=== PATIENT | female | born 1980 | race Caucasian/White ===

== ENCOUNTER 2018-04-28 14:38 | Inpatient (IN) | payer OTHER ==
[2018-04-28 14:59] LABS: ADD MAN DIFF? NO
[2018-04-28 15:08] LABS: ABNORMAL IP MESSAGE 1; BASOPHILS % 0.3 % (0.0-2.0); HEMATOCRIT 17.8 % (37.0-47.0); LYMPHOCYTES # 1.2 10^3/ul (0.8-2.9); LYMPHOCYTES % 35.6 % (15.0-51.0); MEAN CORPUSCULAR HEMOGLOBIN 12.7 pg (29.0-33.0); MEAN CORPUSCULAR HGB CONC 21.9 g/dl (32.0-37.0); MEAN PLATELET VOLUME 9.7 fl (7.4-10.4); MONOCYTE # 0.3 10^3/ul (0.3-0.9); MONOCYTES % 8.8 % (0.0-11.0); NEUTROPHIL # 1.8 10^3/ul (1.6-7.5); NEUTROPHILS % 54.7 % (39.0-77.0); PLATELET COUNT 322 10^3/UL (140-415); RED BLOOD COUNT 3.07 10^6/ul (4.20-5.40); RED CELL DISTRIBUTION WIDTH 23.6 % (11.5-14.5)
[2018-04-28 15:08] LABS: WHITE BLOOD COUNT 3.3 10^3/ul (4.8-10.8)
[2018-04-28 15:14] LABS: HEMOGLOBIN 3.9 g/dl (12.0-16.0); PATH REVIEW? YES; POSITIVE DIFF @See below
[2018-04-28 15:22] LABS: ANION GAP 12 (8-16); BLOOD UREA NITROGEN 8 mg/dl (7-20); CARBON DIOXIDE 24 mmol/L (21-31); CHLORIDE 110 mmol/L (97-110); GLUCOSE 100 mg/dl (70-220); SODIUM 142 mmol/L (135-144)
[2018-04-28 15:28] LABS: INR 1.13; PARTIAL THROMBOPLASTIN TIME 27.9 Sec (25.0-35.0); PROTIME 14.7 Sec (11.9-14.9); PT RATIO 1.1
[2018-04-28] MEDS ORDERED: ONDANSETRON 4 MG INJ IV ×2 (15:30→16:00)
[2018-04-28] MEDS ORDERED: ACETAMINOPHEN 325 MG TAB PO (15:30)
[2018-04-28] MEDS ORDERED: NACL 0.9% 3 ML SYG IV (16:00)
[2018-04-28] MEDS: SOD CHLORIDE 0.9% 250 ML IV (16:36)
[2018-04-28 16:47] LABS: ALANINE AMINOTRANSFERASE 20 IU/L (13-69); ALBUMIN 4.2 g/dl (3.3-4.9); ALKALINE PHOSPHATASE 65 IU/L (42-121); ASPARTATE AMINO TRANSFERASE 21 IU/L (15-46); BILIRUBIN,INDIRECT 0.6 mg/dl (0-1.1); BILIRUBIN,TOTAL 0.6 mg/dl (0.2-1.3); TOTAL PROTEIN 7.9 g/dl (6.1-8.1)
[2018-04-28 16:48] LABS: LACTATE DEHYDROGENASE 365 IU/L (313-618)
[2018-04-28 16:54] LABS: IRON 23 ug/dl (35-150)
[2018-04-28 17:03] LABS: % IRON SATURATION 5 % SAT (22-52); TOTAL IRON BINDING CAPACITY 467 ug/dl (241-421)
[2018-04-28 17:12] LABS: FREE T4 (FREE THYROXINE) 1.13 ng/dl (0.79-2.35)
[2018-04-28 17:18] LABS: THYROID STIMULATING HORMONE 0.603 MIU/L (0.465-4.680)
[2018-04-28 17:23] LABS: FERRITIN 2.2 ng/ml (6.2-137.0)
[2018-04-28 17:43] LABS: HEMOGLOBIN A1C 4.6 % (0-5.9)
[2018-04-28 18:06] LABS: HIV 1&2 ANTIBODY NEGATIVE (NEGATIVE)
[2018-04-28] MEDS: DOCUSATE SODIUM 100 MG CAP PO (21:26)
[2018-04-28] MEDS: POLYSACCHARIDE IRON COMPLEX CAP PO (21:26)
[2018-04-28] MEDS: ACETAMINOPHEN 325 MG TAB PO (21:26)
[2018-04-29 05:20] LABS: WHITE BLOOD COUNT 3.8 10^3/ul (4.8-10.8)
[2018-04-29 05:20] LABS: ABNORMAL IP MESSAGE 1; MEAN CORPUSCULAR VOLUME 68.6 fl (82.0-101.0); NUCLEATED RED BLOOD CELLS% 0.5 /100WBC (0.0-0.0)
[2018-04-29] MEDS: PANTOPRAZOLE (EC) 40 MG TAB PO (05:23)
[2018-04-29 05:36] LABS: MEAN CORPUSCULAR HEMOGLOBIN 18.5 pg (29.0-33.0); MEAN CORPUSCULAR HGB CONC 26.9 g/dl (32.0-37.0); RED BLOOD COUNT 3.79 10^6/ul (4.20-5.40)
[2018-04-29 05:37] LABS: ADD MAN DIFF? YES; PLATELET COUNT 255 10^3/UL (140-415); POSITIVE DIFF @See below; RED CELL DISTRIBUTION WIDTH 32.2 % (11.5-14.5)
[2018-04-29 05:50] LABS: ALANINE AMINOTRANSFERASE 18 IU/L (13-69); ALBUMIN 3.6 g/dl (3.3-4.9); ALBUMIN/GLOBULIN RATIO 1.12; ALKALINE PHOSPHATASE 55 IU/L (42-121); ANION GAP 9 (8-16); ASPARTATE AMINO TRANSFERASE 14 IU/L (15-46); BILIRUBIN,INDIRECT 1.2 mg/dl (0-1.1); BILIRUBIN,TOTAL 1.2 mg/dl (0.2-1.3); BLOOD UREA NITROGEN 9 mg/dl (7-20); CALCIUM 8.6 mg/dl (8.4-10.2); CARBON DIOXIDE 25 mmol/L (21-31); CHLORIDE 112 mmol/L (97-110); CREATININE 0.62 mg/dl (0.44-1.00); GLUCOSE 87 mg/dl (70-220); POTASSIUM 3.8 mmol/L (3.5-5.1); SODIUM 142 mmol/L (135-144); TOTAL PROTEIN 6.8 g/dl (6.1-8.1)
[2018-04-29 05:53] LABS: CHOL/HDL RATIO 2.9 RATIO; CHOLESTEROL 131 mg/dl (100-200); HDL CHOLESTEROL 44 mg/dl (34-88); LDL CHOLESTEROL,CALCULATED 74 mg/dl; MAGNESIUM 2.1 mg/dl (1.7-2.5); TRIGLYCERIDES 66 mg/dl (0-149)
[2018-04-29 05:53] LABS: PHOSPHORUS 3.8 mg/dl (2.5-4.9)
[2018-04-29 06:13] LABS: CANCER ANTIGEN 125 9.1 U/ml (0.0-35.0)
[2018-04-29 06:13] LABS: CARCINOEMBRYONIC ANTIGEN 0.3 ng/ml (0.0-5.0)
[2018-04-29 06:17] LABS: CANCER ANTIGEN 19-9 5.1 U/ml (0.0-37.0)
[2018-04-29 06:18] LABS: ALPHA FETOPROTEIN 1.07 IU/L (0.00-7.21)
[2018-04-29 07:41] LABS: ANISOCYTOSIS 3+ (0-0); BASOPHILS % (M) 1 % (0-2); DIMORPHIC RBC 3+ (0-0); ERYTHROBLAST% (NRBC) (M) 1 % (0-0); HYPOCHROMASIA 2+ (0-0); LYMPHOCYTES #M 1.5 10^3/ul (0.8-2.9); LYMPHOCYTES % (M) 42 % (15-51); MICROCYTOSIS 2+ (0-0); MONOCYTE #M 0.1 10^3/ul (0.3-0.9); MONOCYTES % (M) 4 % (0-11); OVALOCYTES 1+ (0-0); PLATELET ESTIMATE NORMAL; PLATELET MORPHOLOGY COMMENT @See below; POIKILOCYTOSIS 2+ (0-0); POLYCHROMASIA 3+ (0-0); SCHISTOCYTES 1+ (0-0); SEGMENTED NEUTROPHILS (M) % 53 % (39-77); SMUDGE%M 22 % (0-0); TEAR DROP CELLS 1+ (0-0)
[2018-04-29] MEDS ORDERED: BISACODYL (EC) 5 MG TAB PO (10:00)
[2018-04-29] MEDS: POLYETHYLENE GLYCOL 17 GM PACKET PO ×2 (10:02→21:50)
[2018-04-29] MEDS: POLYSACCHARIDE IRON COMPLEX CAP PO ×2 (10:02→21:51)
[2018-04-29] MEDS: DOCUSATE SODIUM 100 MG CAP PO ×2 (10:02→21:50)
[2018-04-29 14:38] LABS: IMMEDIATE SPIN CROSSMATCH 1 4
[2018-04-29] MEDS: SOD CHLORIDE 0.9% 250 ML IV* (15:13)
[2018-04-29] MEDS: SOD FERRIC GLUC COMPLX 125 MG in SOD CHLORIDE 0.9% 100 ML IVPB (19:18)
[2018-04-30] MEDS: PANTOPRAZOLE (EC) 40 MG TAB PO (05:39)
[2018-04-30 06:14] LABS: ABNORMAL IP MESSAGE 1; HEMATOCRIT 30.7 % (37.0-47.0); HEMOGLOBIN 8.8 g/dl (12.0-16.0); MEAN CORPUSCULAR HEMOGLOBIN 20.2 pg (29.0-33.0); MEAN CORPUSCULAR HGB CONC 28.7 g/dl (32.0-37.0); MEAN CORPUSCULAR VOLUME 70.6 fl (82.0-101.0); NUCLEATED RED BLOOD CELLS% 0.7 /100WBC (0.0-0.0); PLATELET COUNT 233 10^3/UL (140-415); RED BLOOD COUNT 4.35 10^6/ul (4.20-5.40); RED CELL DISTRIBUTION WIDTH 30.8 % (11.5-14.5)
[2018-04-30 06:14] LABS: WHITE BLOOD COUNT 4.5 10^3/ul (4.8-10.8)
[2018-04-30 06:17] LABS: POSITIVE DIFF @See below
[2018-04-30 06:18] LABS: ADD MAN DIFF? YES
[2018-04-30 06:39] LABS: PHOSPHORUS 4.1 mg/dl (2.5-4.9)
[2018-04-30 06:39] LABS: MAGNESIUM 2.1 mg/dl (1.7-2.5)
[2018-04-30 06:43] LABS: ALANINE AMINOTRANSFERASE 21 IU/L (13-69); ALBUMIN 3.5 g/dl (3.3-4.9); ALBUMIN/GLOBULIN RATIO 1.09; ALKALINE PHOSPHATASE 54 IU/L (42-121); ANION GAP 12 (8-16); ASPARTATE AMINO TRANSFERASE 14 IU/L (15-46); BILIRUBIN,INDIRECT 1.2 mg/dl (0-1.1); BILIRUBIN,TOTAL 1.2 mg/dl (0.2-1.3); BLOOD UREA NITROGEN 9 mg/dl (7-20); CALCIUM 8.8 mg/dl (8.4-10.2); CARBON DIOXIDE 25 mmol/L (21-31); CHLORIDE 110 mmol/L (97-110); CREATININE 0.64 mg/dl (0.44-1.00); GLUCOSE 77 mg/dl (70-220); POTASSIUM 3.6 mmol/L (3.5-5.1); SODIUM 143 mmol/L (135-144); TOTAL PROTEIN 6.7 g/dl (6.1-8.1)
[2018-04-30 07:31] LABS: ANISOCYTOSIS 2+ (0-0); BAND NEUTROPHILS % (M) 1 % (0-4); HYPOCHROMASIA 1+ (0-0); LYMPHOCYTES #M 1.6 10^3/ul (0.8-2.9); LYMPHOCYTES % (M) 37 % (15-51); MICROCYTOSIS 2+ (0-0); MONOCYTE #M 0.4 10^3/ul (0.3-0.9); MONOCYTES % (M) 10 % (0-11); PLATELET ESTIMATE NORMAL; POIKILOCYTOSIS 2+ (0-0); POLYCHROMASIA 3+ (0-0); REACTIVE LYMPHOCYTES% (M) 2 % (0-0); SEG NEUT #M 2.3 10^3/ul (1.6-7.5); SEGMENTED NEUTROPHILS (M) % 50 % (39-77); SMUDGE%M 13 % (0-0)
[2018-04-30] MEDS: POLYSACCHARIDE IRON COMPLEX CAP PO ×2 (08:28→21:30)
[2018-04-30] MEDS: POLYETHYLENE GLYCOL 17 GM PACKET PO ×2 (08:28→21:00)
[2018-04-30] MEDS: DOCUSATE SODIUM 100 MG CAP PO ×2 (08:28→21:00)
[2018-04-30] MEDS ORDERED: FENTAnyl 50 MCG/ML VIAL (10:14)
[2018-04-30] MEDS ORDERED: PROPOFOL 40 ML (10:14)
[2018-04-30] MEDS ORDERED: MIDAZOLAM 1 MG/ML 2 ML INJ (10:14)
[2018-04-30] MEDS ORDERED: LIDOCAINE 2% (SDV) 5 ML INJ (10:14)
[2018-04-30] MEDS ORDERED: ONDANSETRON 4 MG INJ (10:15)
[2018-04-30] MEDS ORDERED: FAMOTIDINE 20 MG INJ (10:15)
[2018-04-30] MEDS ORDERED: DEXAMETHASONE 4 MG/ML 1 ML INJ (10:15)
[2018-04-30] MEDS ORDERED: LABETALOL HCL 20MG INJ IV (10:30)
[2018-04-30] MEDS ORDERED: MEPERIDINE 25 MG INJ IV (10:30)
[2018-04-30] MEDS ORDERED: OXYCODONE/ACETAMINOPHEN (5/325) TAB PO ×3 (10:30→14:00)
[2018-04-30] MEDS ORDERED: morphine (1 MG/ML) 10ML SYRINGE IV ×2 (10:30)
[2018-04-30] MEDS ORDERED: ALBUTEROL 0.083% (NEB) 2.5 MG/3 ML AMP HHN (10:30)
[2018-04-30] MEDS ORDERED: ONDANSETRON 4 MG INJ IV (10:30)
[2018-04-30] MEDS ORDERED: FENTAnyl 50 MCG/ML VIAL IV ×2 (10:30)
[2018-04-30] MEDS ORDERED: DIPHENHYDRAMINE 50 MG INJ IV (10:30)
[2018-04-30] MEDS ORDERED: KETOROLAC 30 MG INJ (11:10)
[2018-04-30] MEDS ORDERED: ACETAMINOPHEN 1000MG/100ML IV 100 ML ×2 (11:22→11:23)
[2018-04-30] MEDS ORDERED: EPHEDrine SULFATE 50 MG/5 ML SYG (12:10)
[2018-04-30] MEDS ORDERED: CEFAZOLIN 1 GM INJ (12:10)
[2018-04-30] MEDS: HYDROmorphONE 1 MG/5 ML IV SYRINGE IV ×2 (12:58→13:06)
[2018-04-30] MEDS: morphine 2 MG INJ IV ×2 (14:12→16:42)
[2018-04-30] MEDS: SOD FERRIC GLUC COMPLX 125 MG in SOD CHLORIDE 0.9% 100 ML IVPB (16:42)
[2018-05-01] MEDS: PANTOPRAZOLE (EC) 40 MG TAB PO (05:36)
[2018-05-01] MEDS: POLYSACCHARIDE IRON COMPLEX CAP PO (08:24)
[2018-05-01] MEDS: DOCUSATE SODIUM 100 MG CAP PO (08:24)
[2018-05-01] MEDS: POLYETHYLENE GLYCOL 17 GM PACKET PO (08:26)
[2018-05-01 11:27] LABS: ADD MAN DIFF? NO
[2018-05-01 11:29] LABS: WHITE BLOOD COUNT 5.4 10^3/ul (4.8-10.8)
[2018-05-01 11:29] LABS: ABNORMAL IP MESSAGE 1; BASOPHILS % 0.4 % (0.0-2.0); HEMATOCRIT 29.2 % (37.0-47.0); HEMOGLOBIN 8.2 g/dl (12.0-16.0); LYMPHOCYTES # 1.7 10^3/ul (0.8-2.9); MEAN CORPUSCULAR HEMOGLOBIN 20.1 pg (29.0-33.0); MEAN CORPUSCULAR HGB CONC 28.1 g/dl (32.0-37.0); MEAN CORPUSCULAR VOLUME 71.6 fl (82.0-101.0); MONOCYTE # 0.6 10^3/ul (0.3-0.9); NEUTROPHILS % 55.9 % (39.0-77.0); NUCLEATED RED BLOOD CELLS% 0.6 /100WBC (0.0-0.0); PLATELET COUNT 207 10^3/UL (140-415); RED BLOOD COUNT 4.08 10^6/ul (4.20-5.40); RED CELL DISTRIBUTION WIDTH 32.1 % (11.5-14.5)
[2018-05-01 11:30] LABS: POSITIVE DIFF @See below
[2018-05-01 11:47] LABS: ANION GAP 9 (8-16); BLOOD UREA NITROGEN 9 mg/dl (7-20); CALCIUM 8.5 mg/dl (8.4-10.2); CARBON DIOXIDE 23 mmol/L (21-31); CHLORIDE 111 mmol/L (97-110); CREATININE 0.68 mg/dl (0.44-1.00); GLUCOSE 93 mg/dl (70-220); POTASSIUM 3.4 mmol/L (3.5-5.1); SODIUM 140 mmol/L (135-144)
[2018-05-01 16:16] LABS: PROLACTIN 23.9 ng/mL
[2018-05-01 18:31] LABS: HAPTOGLOBIN 103 mg/dL (43-212)
== END 2018-05-01 16:13 | disposition home or self-care (01) | DRG 743 ==
LOC: E/R 14:38 → PP2 15:20
PROVIDERS: Pediatrics Neonatal-Perinatal Medicine
PROC: 0UB98ZZ Excision of Uterus, Via Natural or Artificial Opening Endoscopic (ICD-10-PCS; principal; 2018-04-30 10:00)
PROC: 0UDB8ZX Extraction of Endometrium, Via Natural or Artificial Opening Endoscopic, Diagnostic (ICD-10-PCS; 2018-04-30 10:00)
PROC: 0U5B8ZZ Destruction of Endometrium, Via Natural or Artificial Opening Endoscopic (ICD-10-PCS; 2018-04-30 10:00)
PROC: 30233N1 Transfusion of Nonautologous Red Blood Cells into Peripheral Vein, Percutaneous Approach (ICD-10-PCS; 2018-04-30 10:53)
PROC: 30233N1 Transfusion of Nonautologous Red Blood Cells into Peripheral Vein, Percutaneous Approach (ICD-10-PCS; 2018-04-30 10:53)
DX: D25.0 Submucous leiomyoma of uterus (principal); D50.0 Iron deficiency anemia secondary to blood loss (chronic); N92.0 Excessive and frequent menstruation with regular cycle; Q51.2 Other doubling of uterus; D72.819 Decreased white blood cell count, unspecified; R63.4 Abnormal weight loss; Z68.28 Body mass index [BMI] 28.0-28.9, adult
CPT/HCPCS: 36415; 36430; 76856; 80048; 80053; 80061; 80076; 82105; 82378; 82728; 83010; 83036; 83540; 83615; 83735; 84100; 84146; 84439; 84443; 84703; 85025; 85610; 85730; 86301; 86304; 86644; 86703; 86850; 86900; 86901; 86920; 88305; 88331; 99285-25

== ENCOUNTER 2018-09-19 18:35 | Emergency (ER) | payer OTHER ==
[2018-09-19 21:39] LABS: ADD MAN DIFF? NO
[2018-09-19 21:49] LABS: ABNORMAL IP MESSAGE 1; BASOPHILS % 0.6 % (0.0-2.0); EOSINOPHILS # 0.1 10^3/ul (0.0-0.5); EOSINOPHILS % 1.3 % (0.0-7.0); HEMATOCRIT 30.7 % (37.0-47.0); HEMOGLOBIN 8.8 g/dl (12.0-16.0); LYMPHOCYTES # 2.1 10^3/ul (0.8-2.9); LYMPHOCYTES % 39.8 % (15.0-51.0); MEAN CORPUSCULAR HGB CONC 28.7 g/dl (32.0-37.0); MEAN CORPUSCULAR VOLUME 80.2 fl (82.0-101.0); MEAN PLATELET VOLUME 10.1 fl (7.4-10.4); MONOCYTE # 0.5 10^3/ul (0.3-0.9); MONOCYTES % 8.9 % (0.0-11.0); NEUTROPHIL # 2.6 10^3/ul (1.6-7.5); NEUTROPHILS % 49.2 % (39.0-77.0); PLATELET COUNT 268 10^3/UL (140-415); RED BLOOD COUNT 3.83 10^6/ul (4.20-5.40); RED CELL DISTRIBUTION WIDTH 15.9 % (11.5-14.5)
[2018-09-19 21:49] LABS: WHITE BLOOD COUNT 5.3 10^3/ul (4.8-10.8)
[2018-09-19 21:53] LABS: POSITIVE DIFF @See below
[2018-09-19 21:55] LABS: ADD UMIC YES; UR ASCORBIC ACID 40 mg/dL (NEGATIVE); UR BILIRUBIN (Dip) NEGATIVE (NEGATIVE); UR BLOOD (Dip) 3+ mg/dL (NEGATIVE); UR CLARITY SLIGHTLY CLOUDY (CLEAR); UR COLOR YELLOW (YELLOW); UR GLUCOSE (Dip) NEGATIVE (NEGATIVE); UR KETONES (Dip) TRACE mg/dL (NEGATIVE); UR LEUKOCYTE ESTERASE (Dip) NEGATIVE Leu/ul (NEGATIVE); UR MUCUS MODERATE /HPF (NONE SEEN); UR NITRITE (Dip) NEGATIVE (NEGATIVE); UR RBC 44 /HPF (0-5); UR SPECIFIC GRAVITY (Dip) 1.031 (1.003-1.030); UR SQUAMOUS EPITHELIAL CELL FEW /HPF (FEW); UR TOTAL PROTEIN (Dip) 1+ mg/dl (NEGATIVE); UR UROBILINOGEN (Dip) 1+ mg/dL (NEGATIVE); UR WBC 2 /HPF (0-5)
[2018-09-19 22:09] LABS: ANION GAP 11 (5-13); BLOOD UREA NITROGEN 15 mg/dl (7-20); CALCIUM 8.7 mg/dl (8.4-10.2); CARBON DIOXIDE 22 mmol/L (21-31); CHLORIDE 107 mmol/L (97-110); CREATININE 0.79 mg/dl (0.44-1.00); Estimated GFR > 60 mL/min (>60); GLUCOSE 95 mg/dl (70-220); POTASSIUM 3.4 mmol/L (3.5-5.1); SODIUM 140 mmol/L (135-144)
[2018-09-19] MEDS: MEDROXYPROGESTERONE 10 MG TAB PO (23:21)
== END 2018-09-19 23:28 | disposition home or self-care (01) ==
LOC: FTE 18:35
DX: D25.9 Leiomyoma of uterus, unspecified (principal); N92.6 Irregular menstruation, unspecified; R10.2 Pelvic and perineal pain
CPT/HCPCS: 36415; 76856; 80048; 81001; 81025; 85025; 99284-25